=== PATIENT | male | born 1980 | race Caucasian/White ===

== ENCOUNTER 2022-10-29 08:47 | Emergency (ER) | payer OTHER, SELFPAY ==
[2022-10-29] VITALS (7 sets, daily range): BP systolic 111–167; BP diastolic 69–106; PULSE 60–86; RESP 12–19; TEMP 36.5; O2SAT 91–99; BMI 25.0
--- NOTE | 2022-10-29 09:20 | ED_ITS ---
HPI - Back Pain/Injury General: Chief Complaint: Back Pain/Injury Stated Complaint: rt sided back pain Time Seen by Provider: 10/29/22 08:52 Source: patient Mode of arrival: EMS History of Present Illness: 42-year-old male who presents to the emergency room with complaints of back pain. Yesterday he was helping someone try to pull a tree off the road hold him of the tree knocked him off his feet he landed on his right side today he is complaining of severe pain. He denies any pain rating to the lower extremities no difficulty with bowel or bladder his back pain is localized to the lumbar lower lumbar region does not radiate out. No previous back injury or surgeries. Patient denies striking head denies loss consciousness. MD elicited complaint: back pain Pertinent past history: recent trauma Onset (ago): day(s) Severity: mild Radiation: none Exacerbating factors: none Relieving factors: none Context: fall Associated symptoms: Deny abdominal pain, arthralgias, chills, change in bowel habits, difficulty walking, dysuria, fatigue, fecal incontinence, fever(s), hematuria, myalgias, nausea, numbness, syncope, tingling/numbness/burning, urinary frequency, urinary urgency, vomiting or weakness Review of Systems Const: Denies: fever(s), chills, fatigue or malaise ENMT: Denies: throat pain, ear or mastoid pain, nasal discharge or nasal congestion Card: Denies: chest pain, palpitations or syncope Resp: Denies: dyspnea, productive cough or non-productive cough GI: Denies: abdominal pain, nausea, vomiting, fecal incontinence or change in bowel habits : Denies: dysuria, urinary frequency, urinary urgency or hematuria Skin/Breast: Denies: rash or pruritus Neuro: Denies: difficulty walking Physical Exam Const: GENERAL APPEARANCE: cooperative and comfortable SHARA ENTATION/CONSCIOUSNESS: Yes awake, Yes oriented to person, Yes oriented to place and Yes oriented to time HENMT: COMMON NORMALS: normocephalic, atraumatic and hearing grossly normal bilaterally HEAD & SCALP: normocephalic and atraumatic Resp: COMMON NORMALS: normal respiratory effort, No retractions, No use of accessory muscles and clear to auscultation bilaterally AUSCULTATION: clear to auscultation bilaterally Cardio: COMMON NORMALS: regular rate, regular rhythm and No murmurs present (Cardio) RATE: regular rate RHYTHM: regular rhythm GI: COMMON NORMALS: Soft to palpation and No hepatosplenomegaly present AUSCULTATION: Yes normoactive bowel sounds PALPATION: Yes Soft to palpation, No Tenderness to palpation present (GI), No Guarding due to palpation present (GI) and Yes No hepatosplenomegaly present Extremity: COMMON NORMALS: no clubbing, cyanosis or edema, no calf tenderness and no pedal edema OTHER: Dorsal and ellie strength 5 of 5 deep and reflexes patellar tendon +2 for sensation lower extremity normal Neuro: SENSORIUM/ORIENTATION: Yes oriented to person, Yes oriented to place and Yes oriented to time Skin: COMMON NORMALS: no rashes or lesions noted GENERAL SKIN EXAM: no rashes or lesions noted Course Vital Signs: Vital signs: Vital Signs Temperature 97.7 F 10/29/22 08:49 Pulse Rate 68 10/29/22 11:53 Respiratory Rate 16 10/29/22 11:53 Blood Pressure 111/69 10/29/22 11:53 Pulse Oximetry 96 10/29/22 11:53 Oxygen Delivery Me thod 10/29/22 09:31 MDM - Back Pain/Injury Medical Decision Making Imaging reviewed CT of the neck is normal. CT of the lumbar spine shows a transverse process fracture at L3 and 4 with no significant displacement. Discharge patient home pain medications follow-up with primary care return if has problems. Reviewed findings with the patient. Medical Records I reviewed the patient's medical records. Labs I reviewed the patient's lab results. Radiology Impressions Lumbar Spine CT 10/29/22 09:22 IMPRESSION: Acute nondisplaced right L3 and L4 transverse process fractures. Cervical Spine CT 10/29/22 09:24 IMPRESSION: No acute fracture. Discharge Plan Discharge Patient Disposition: Home Clinical Impression: Closed fracture of transverse process of lumbar vertebra Condition: Stable Prescriptions: New hydrocodone-acetaminophen 5-325 mg tablet 1 tab PO Q6H PRN (Reason: pain) Qty: 20 0RF tizanidine 4 mg tablet 4 mg PO Q6H PRN (Reason: muscle spasticity) Qty: 20 0RF Rx Instructions: do not exceed 3 doses per 24 hrs No Action clonazepam 0.5 mg tablet 0.5 mg PO BEDTIME alprazolam 0.25 mg tablet 0.5 mg PO BEDTIME sertraline 50 mg tablet 50 mg PO BEDTIME Discharge Orders: Discharge ED (Routine); Ordered 10/29/22 Ordered By: Matthew Funez Referrals: Maria Guadalupe Aparicio MD [Primary Care Provider] - Discharge Diet: Usual diet Discharge Activity: Increase activity as tolerated Patient Instructions: Transverse Process Fracture (ED), Opioid Safety, Pain Management Activity Restrictions/Additional Instructions: You were seen today for back pain after a fall. CT shows nondisplaced L3 and L4 transverse process fractures. While these are very painful they do not cause any nerve damage or spinal cord damage. Recommend pain medications limit lifting bending and stooping should not lift anything more than 10 pounds (approximately the weight of a gallon of milk). Follow-up with your primary care doctor. 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
--- NOTE | 2022-10-29 09:22 | CTR_ITS ---
PROCEDURE INFORMATION: Exam: CT Lumbar Spine Without Contrast Exam date and time: 10/29/2022 9:48 AM Age: 42 years old Clinical indication: Injury or trauma; Fall; Blunt trauma (contusions or hematomas) TECHNIQUE: Imaging protocol: Computed tomography of the lumbar spine without contrast. Radiation optimization: All CT scans at this facility use at least one of these dose optimization techniques: automated exposure control; mA and/or kV adjustment per patient size (includes targeted exams where dose is matched to clinical indication); or iterative reconstruction. REPORTING DATA: Count of CT and Cardiac NM exams in prior 12 months: This patient has received [address] and 0 known cardiac nuclear medicine studies in the 12 months prior to the current study. COMPARISON: No relevant prior studies available. RADIATION DOSE METRICS: Total DLP (mGy-cm): 458.6 FINDINGS: Bones/joints: Spinal alignment is normal. Vertebral body height is maintained. Intervertebral disc height is maintained. Mild multilevel generalized disc bulges without disc herniation. Facet joints are normal. There are acute nondisplaced right L3 and L4 transverse process fractures. There is partial sacralization of L5 with hypertrophic transverse processes. No pseudoarthrosis with the sacrum. Visible portions of the ribs are intact. No spinal canal stenosis. Lungs: Lung bases are clear. Diaphragm: There is a small sliding-type hiatal hernia. Soft tissues: Paraspinal soft tissues are unremarkable. CT/CT lumbar spine wo con* [id number] IMPRESSION: Acute nondisplaced right L3 and L4 transverse process fractures.
[2022-10-29] MEDS: ketorolac 30 mg/mL INJ IVP (09:24)
[2022-10-29] MEDS: dexamethasone 10 mg/mL INJ IVP (09:24)
--- NOTE | 2022-10-29 09:24 | CTR_ITS ---
PROCEDURE INFORMATION: Exam: CT Cervical Spine Without Contrast Exam date and time: 10/29/2022 9:45 AM Age: 42 years old Clinical indication: Injury or trauma; Fall; Blunt trauma TECHNIQUE: Imaging protocol: Computed tomography of the cervical spine without contrast. Radiation optimization: All CT scans at this facility use at least one of these dose optimization techniques: automated exposure control; mA and/or kV adjustment per patient size (includes targeted exams where dose is matched to clinical indication); or iterative reconstruction. REPORTING DATA: Count of CT and Cardiac NM exams in prior 12 months: This patient has received [address] and 0 known cardiac nuclear medicine studies in the 12 months prior to the current study. COMPARISON: No relevant prior studies available. RADIATION DOSE METRICS: Total DLP (mGy-cm): 197.1 FINDINGS: Bones/joints: No spinal canal stenosis. Spinal alignment is normal. Vertebral body height is maintained. No acute fracture. There is mild degenerative disc disease in the cervical spine. Lungs: Lung apices are clear. Soft tissues: Soft tissues in the neck and thoracic inlet are unremarkable. CT/CT cervical spin wo con* [id number] IMPRESSION: No acute fracture.
[2022-10-29] MEDS: orphenadrine 30 mg/mL Inj 2 mL 60 MG IVP (09:25)
== END 2022-10-29 11:54 | disposition home or self-care (01) ==
PROVIDERS: Emergency Provider Family Medicine; PCP Family Medicine
DX: S32.039A Unspecified fracture of third lumbar vertebra, initial encounter for closed fracture (principal); S32.049A Unspecified fracture of fourth lumbar vertebra, initial encounter for closed fracture; W18.39XA Other fall on same level, initial encounter
CPT/HCPCS: 72125; 72131; 96374; 96375; 99285; J1100; J1885; J2360

== ENCOUNTER → 2023-08-03 12:43 | Outpatient (BNVA) | payer OTHER, SELFPAY | PROVIDERS: PCP Family Medicine; Visit Provider Nurse Practitioner Family | DX: R07.9 Chest pain, unspecified (principal) | CPT/HCPCS: 93005 ==

== ENCOUNTER → 2025-04-01 15:24 | Outpatient (BNVA) | payer OTHER, SELFPAY | PROVIDERS: PCP Family Medicine; Visit Provider Family Medicine | DX: K52.9 Noninfective gastroenteritis and colitis, unspecified (principal) | CPT/HCPCS: 80053; 82270; 83630; 83690; 84443; 85025; 87338; 87493 ==

== ENCOUNTER → 2025-04-05 11:55 | Outpatient (BNVA) | payer OTHER, SELFPAY | PROVIDERS: PCP Family Medicine; Visit Provider Family Medicine | DX: K52.9 Noninfective gastroenteritis and colitis, unspecified (principal) | CPT/HCPCS: 80053; 83690; 84443 ==

== ENCOUNTER 2025-04-18 15:34 | Outpatient (CLI) | payer OTHER, SELFPAY ==
[2025-04-18] MEDS: iohexol 350 mg/mL 500 mL Btl (per mL) IV (16:19)
--- NOTE | 2025-04-18 16:45 | CTR_ITS ---
PROCEDURE INFORMATION: Exam: CT Abdomen And Pelvis With Contrast Exam date and time: 04/18/2025 4:16 PM Age: 45 years old Clinical indication: Abdominal pain; Localized; Left lower quadrant (llq); Prior surgery; Surgery date: 6+ months; Surgery type: Hernia; History--diarrhea especially after eating x 1 month, lower left abdomen and back pain mostly on the left flank, HX of l-3-4 FX; Additional info: Diarrhea, elevated lipase TECHNIQUE: Imaging protocol: Computed tomography of the abdomen and pelvis with contrast. Radiation optimization: All CT scans at this facility use at least one of these dose optimization techniques: automated exposure control; mA and/or kV adjustment per patient size (includes targeted exams where dose is matched to clinical indication); or iterative reconstruction. Contrast material: OMNI 350; Contrast volume: 100 ml; Contrast route: INTRAVENOUS (IV); COMPARISON: CT lumbar spine wo con* [id number] 10/29/2022 9:48 AM RADIATION DOSE METRICS: Total DLP (mGy-cm): 311.6 FINDINGS: Liver: Normal. No mass. Gallbladder and biliary ducts: Normal. No calcified stones. No ductal dilation. Pancreas: Normal. No ductal dilation. Spleen: Normal. No splenomegaly. Adrenal glands: Normal. No mass. Kidneys and ureters: Normal. No hydronephrosis. Stomach and bowel: Unremarkable. No obstruction. No mucosal thickening. Appendix: The appendix is visualized and is normal in configuration. Intraperitoneal space: Unremarkable. No free air. No significant fluid collection. Vasculature: Unremarkable. No abdominal aortic aneurysm. Lymph nodes: Unremarkable. No enlarged lymph nodes. Urinary bladder: Unremarkable as visualized. Reproductive: There is prominence of the seminal vesicles bilaterally, a nonspecific finding. Calcifications are seen within the prostate gland centrally. This may be idiopathic or the sequela of prostatic infection. Some low attenuation seen within the prostatic parenchyma anteriorly predominantly on the right. Again, edematous changes and prostatitis can not be excluded. Bones/joints: Unremarkable. No acute fracture. Soft tissues: There is a small left inguinal hernia containing fat. CT/CT abdomen pelvis w con* [id number] IMPRESSION: 1. There is mild prominence of the seminal vesicles bilaterally, a nonspecific finding. 2. Central prostatic calcifications, a finding that can be idiopathic although other possibilities including prostatic infections can not be excluded. There is focal low attenuation seen in the prostate gland parenchyma anteriorly on the right and edematous changes and prostatitis can not be excluded. 3. Small left inguinal hernia containing fat 4. No evidence for ureteral obstruction 5. Normal appendix
== END 2025-04-18 15:35 | disposition home or self-care (01) ==
PROVIDERS: PCP Family Medicine; Visit Provider Family Medicine
DX: R74.8 Abnormal levels of other serum enzymes (principal); K52.9 Noninfective gastroenteritis and colitis, unspecified
CPT/HCPCS: 74177